=== PATIENT | female | born 1975 | race Caucasian/White ===

== ENCOUNTER → 2017-10-06 08:04 | Outpatient (CLI) | payer BC | END | disposition home or self-care (01) | LOC: D.NM 08:04 | DX: R10.11 Right upper quadrant pain (principal) ==

== ENCOUNTER → 2018-01-07 13:35 | Outpatient (CLI) | payer BC | END | disposition home or self-care (01) | LOC: D.CT 13:35 | DX: R10.11 Right upper quadrant pain (principal) ==

== ENCOUNTER 2018-08-13 10:05 | Day surgery (SDC) | payer BC ==
[2018-08-12 08:52] LABS: HEMATOCRIT 43.7 % (36.0-48.0); HEMOGLOBIN 15.1 g/dL (12-16); MCH 32.5 pg (26.0-34.0); MCHC 34.6 g/dL (31.0-37.0); MCV 94.2 fL (80.0-100.0); MEAN PLATELET VOLUME 10.3 fL (7.4-10.4); RBC 4.64 10x6/uL (4.00-5.40); RDW 12.5 % (11.5-14.5); WBC 7.1 10x3/uL (4.8-10.8)
[2018-08-12 09:08] LABS: CALC OSMOLALITY 287 mosm/kg (275-300); CALCIUM 10.1 mg/dL (8.5-10.1); CARBON DIOXIDE 24.9 mmol/L (21.0-32.0); CHLORIDE - SERUM 102 mmol/L (98-107); CREATININE - SERUM 0.8 mg/dL (0.6-1.3); GLUCOSE 224 mg/dL (74-106); POTASSIUM - SERUM 4.3 mmol/L (3.5-5.1); SODIUM 140 mmol/L (136-145); UREA NITROGEN 18 mg/dL (7-18); eGFR NON AFRICAN AMERICAN 82 mL/min (90-120)
[~2018-08-13] VITALS: Ht 152.4 cm; Wt 74.8 kg
[~2018-08-13 10:05] MED LIST: BAYER CHEWABLE81 MG PO; EFFEXOR XR150 MG PO; JARDIANCE25 MG PO; LIPITOR20 MG PO; TAMOXIFEN CITRA20 MG PO
[2018-08-13 11:34] VITALS: BP 164/95; Ht 152.4 cm; Wt 74.8 kg
[2018-08-13] MEDS ORDERED: HYDROCODON-ACE1 EA10 PO (16:02)
--- NOTE | 2018-08-20 13:37 | OP ---
PATIENT NAME: NIKOLE DAVILA MEDICAL RECORD: [id number] :71 LOCATION:[facility] ADMISSION DATE: SURGEON: LISA JACOBS MD DATE OF OPERATION: 08/13/2018 PREOPERATIVE DIAGNOSIS: Recalcitrant left lateral epicondylitis. POSTOPERATIVE DIAGNOSIS: Recalcitrant left lateral epicondylitis. PROCEDURE: Left lateral epicondylectomy with reapproximation of the extensor mass. SURGEON: Lisa Jacobs MD ORGANIC GARDENING TEACHER: WALTER Maddox INTRAOPERATIVE COMPLICATIONS: None. SUMMARY OF PATHOLOGIC FINDINGS: The patient had avulsion of the ECRB as well as tendinotic appearing fibers in the left lateral mass. OPERATIVE SUMMARY IN DETAIL: After obtaining the appropriate preoperative orthopedic surgery consent as well as anesthetic consultation, evaluation, and clearance, the patient was brought to the operating room and placed on the operating table in supine position. After general laryngeal mask airway was administered, tourniquet was placed on the proximal aspect of left upper extremity. Left upper extremity was then prepped and draped in routine sterile fashion. The arm was elevated and exsanguinated, tourniquet was inflated to 250 mmHg. Routine incisions were made from approximately the tip of the radial head back across the lateral epicondyle, taken down to the lateral epicondyle. At this point, portions of the stenotic ECRB were excised as well as a subperiosteal peel down off the lateral condyle. Small sagittal saw was then used to take off just a portion of the lateral epicondyle to create a good bleeding bone bed. The lateral epicondyle was then prepped for a SutureTak from [employer] -- 3.5. This was gently placed in. This was double loaded. The double loaded fiber wires were then used to reapproximate the freshly cleaned extensor mechanism origin. This was then sealed watertight to avoid any capsular leak with a #1 Vicryl. Having completed this, the wound was closed with 2-0 Vicryl followed by 4-0 Prolene in routine interrupted fashion. Sterile dressings were applied. The tourniquet was deflated. The patient was awakened and taken to the recovery room in stable condition. All final needle and sponge counts were correct. TRANSINT:[id number] Voice Confirmation ID: [id number] DOCUMENT ID: [id number] LISA JACOBS MD at 1337 CC: [id number] DICTATION DATE: 08/19/18 1457 PASTEURIZING SUPERVISOR: 08/19/[address] [place] [address] 08/13/18 [id number] [place] [address]
== END 2018-08-13 13:55 | disposition home or self-care (01) ==
LOC: D.OPS 10:05
PROVIDERS: Anesthesiology
DX: M77.12 Lateral epicondylitis, left elbow (principal)